=== PATIENT | female | born 1940 | race Caucasian/White ===

== ENCOUNTER 2021-06-23 14:45 | Emergency (ER) | payer MEDICARE, BC ==
[2021-06-23 16:00] LABS: BASO # 0.01 K/mm3 (0.02-0.10); HEMATOCRIT 34.8 % (37.0-47.0); HEMOGLOBIN 11.3 g/dL (12.5-16.0); LYMPH# 0.24 K/mm3 (1.50-4.00); MEAN CELL VOLUME 105 fl (78-100); MEAN CORPUSCULAR HEMOGLOBIN 34 pg (27-31); MEAN CORPUSCULAR HGB CONC 33 g/dL (33-37); MEAN PLATELET VOLUME 10.9 fl (7.4-10.4); MONO # 0.08 K/mm3 (0.20-0.80); NEU # 0.89 K/mm3 (1.40-6.50); PLATELET COUNT 78 K/mm3 (130-400); RED BLOOD COUNT 3.32 M/mm3 (4.10-5.30); RED CELL DISTRIBUTION WIDTH 20.7 % (11.5-14.5)
[2021-06-23 16:09] LABS: WHITE BLOOD COUNT 1.4 K/mm3 (4.8-10.8)
[2021-06-23 16:12] LABS: ALBUMIN 3.7 g/dL (3.4-4.8); POTASSIUM 4.4 mmol/L (3.5-5.1)
[2021-06-23 16:13] LABS: CALCIUM 10.2 mg/dL (8.3-10.5)
[2021-06-23 16:14] LABS: TOTAL PROTEIN 6.7 g/dL (6.2-8.1)
[2021-06-23 16:16] LABS: TOTAL BILIRUBIN 0.5 mg/dL (0.2-1.2)
[2021-06-23 16:33] LABS: LYMPHOCYTE 21 % (20-51); MONOCYTE 3 % (3-10); NEUTROPHILS 76 % (42-75); POLYCHROMASIA 1+
[2021-06-23 16:40] LABS: PH-URINE 5.5 (5.0 - 8.0); URINE APPEARANCE CLEAR; URINE COLOR YELLOW
[2021-06-23 16:41] LABS: URINE BILIRUBIN NEGATIVE (NEGATIVE); URINE BLOOD 50 ery/uL (NEGATIVE); URINE GLUCOSE NEGATIVE (NEGATIVE); URINE KETONE TR (NEGATIVE); URINE LEUKOCYTE ESTERASE NEGATIVE (NEGATIVE); URINE NITRATE NEGATIVE (NEGATIVE); URINE PROTEIN(semi-quant) TRACE (NEGATIVE); URINE UROBILINOGEN NORMAL (NORMAL)
[2021-06-23 16:42] LABS: URINE MUCUS PRESENT (NOT PRESENT)
[2021-06-23] MEDS ORDERED: ELIQUIS2.5 MG PO (17:07)
[2021-06-23] MEDS ORDERED: PROAIR HFA0.09 MG/AC IH (17:07)
[2021-06-23] MEDS ORDERED: ATORVASTATIN CA40 MG PO (17:08)
[2021-06-23] MEDS ORDERED: QUALITY CHOICE81 M2 PO (17:08)
[2021-06-23] MEDS ORDERED: ANTACID500 M1 PO (17:09)
[2021-06-23] MEDS ORDERED: [UNRECOGNIZED DRUG - OTHER] PO (17:09)
[2021-06-23] MEDS ORDERED: VITAMIN D350 MCG PO (17:10)
[2021-06-23] MEDS ORDERED: INQOVI 35 MG-11 EACH PO (17:11)
[2021-06-23] MEDS ORDERED: VIBRAMYCIN HYC100 MG PO (17:11)
[2021-06-23] MEDS ORDERED: FLUCONAZOLE200 MG PO (17:12)
[2021-06-23] MEDS ORDERED: ZESTRIL5 M1 PO (17:13)
[2021-06-23] MEDS ORDERED: PANTOPRAZOLE SO40 MG PO (17:13)
[2021-06-23] MEDS ORDERED: PREDNISONE 5MG5 MG PO (17:14)
[2021-06-23] MEDS ORDERED: VENCLEXTA100 MG PO (17:14)
[2021-06-23] MEDS ORDERED: VALACYCLOVIR1 GM PO (17:14)
[2021-06-23 18:38] VITALS: BP 122/62
== END 2021-06-23 18:38 | disposition home or self-care (01) ==
LOC: ED 14:45
PROVIDERS: Physician Assistant
DX: C92.00 Acute myeloblastic leukemia, not having achieved remission (principal); J32.9 Chronic sinusitis, unspecified; Z20.822 Contact with and (suspected) exposure to COVID-19
CPT/HCPCS: J0696; J7030